=== PATIENT | male | born 1985 | race Caucasian/White ===

== ENCOUNTER 2019-11-20 03:01 | Emergency (ER) | payer SELFPAY ==
[2019-11-20 03:05] VITALS: BP 161/101; PULSE 136; RESP 25; TEMP 36.7; O2SAT 99; BMI 26.0
--- NOTE | 2019-11-20 03:12 | RAD_ITS ---
STUDY: X-RAY CHEST REASON FOR EXAM: Male, 34 years old. OVERDOSE -- C/O SOB -- SMOKES 2-3 PACKS OF CIGARETTES A DAY TECHNIQUE: Single AP portable view of the chest. COMPARISON: None. FINDINGS: The lungs are clear and expanded. There is no demonstrated pleural abnormality. Normal size heart. Normal mediastinum and sterling. Normal visualized pulmonary arteries. Normal visualized aortic arch and descending thoracic aorta. Normal visualized thoracic spine. Normal visualized ribs, clavicles, and shoulders. There is no demonstrated abnormality of the visualized soft tissue structures of the upper abdomen. RAD/Chest 1 View (Portable) IMPRESSION: Normal x-ray examination of the chest. Electronically Signed: Dasha Grey MD at 3:58 EDT , Service support ,
--- NOTE | 2019-11-20 03:13 | EKG12_ITS ---
Test Reason : DYSRHYTHMIA Blood Pressure : / mmHG Vent. Rate : 124 BPM Atrial Rate : 124 BPM P-R Int : 146 ms QRS Dur : 088 ms QT Int : 320 ms P-R-T Axes : 076 054 036 degrees QTc Int : 459 ms Sinus tachycardia Otherwise normal ECG Confirmed by EROS LANG, LAMONT ([id number]), visual effects editor ALONDRA VALLE ([id number]) on 11/22/2019 1:50:40 PM Referred By: SUBHASH Confirmed By:FELIBEROT COONEY MD
--- NOTE | 2019-11-20 03:14 | ED.VIS.GEN ---
History of Present Illness Chief Complaint: Overdose Informant: Patient, [employer] Onset: Today Narrative: Patient brought by EMS from his friend's house due to unresponsive event, they had suspected overdose. He states he was hanging out only thing he did was smoke weed, lasting he remembers. He denies alcohol use or opiate drug use. He was given a total of 6 Narcan did not responded to get the EMS. Reported he had a lot of emesis, denies any current nausea. Denies any recent illness. No urinary symptoms. Denies chest pains or shortness of breath. Denies any previous similar symptoms in the past. Denies allergies or any past medical history is. Prior similar symptoms: No Past Medical History - Allergies and Home Meds Allergies/Adverse Reactions: Allergies CATS Allergy (Uncoded 11/20/19 03:10) Swelling Primary Care Physician: Polo Burgess [Primary Care Provider] - Past Medical History: None Smoking Status: Current every day smoker Review of Systems General: Denies: Chills, Fever, Sweats Eyes: Denies: Visual changes - bilaterally, Diplopia ENT: Denies: Rhinorrhea, Sore throat Cardiovascular: Denies: Chest pain, Palpitations Respiratory: Denies: Dyspnea, Cough, Dyspnea on exertion Gastrointestinal: Denies: Abdominal pain, Nausea, Vomiting, Diarrhea, Melena, Hematochezia Genitourinary: Denies: Dysuria, Hematuria, Frequency Musculoskeletal: Denies: Back pain, Extremity Pain Skin: Denies: Rash, Wounds Neurological: Denies: Headache, Weakness, Numbness Physical Exam Vital Signs/Narrative: Vital Signs Temp Pulse Resp BP Pulse Ox 11/20/19 03:05 98.0 F 136 H 25 H 161/101 H 99 General: Well nourished, Well developed, No Acute Distress Head: Normocephalic, Atraumatic Eyes: Perrl, EOMI ENT: Moist mucous membranes, No rhinorrhea Neck: Supple, Nontender Cardiovascular: Regular rate, Regular rhythm, No murmurs, Tachycardia Respiratory: No distress, CTA bilaterally, Chest nontender Abdomen: Soft, Nontender, Nondistended, Normal bowel sounds Back: Nontender, Normal Inspection Extremities: Nontender, No edema, - - Left proximal tibial IO Skin: Normal color, No rash Neurological: Alert, Oriented x3, Cranial nerves II-XII grossly intact, Normal Strength, Normal Sensation Psychological: Normal affect, Normal Mood Diagnostic/Tx/Re-eval Chest X-Ray - ED: 2 View, Read by ED Physician, Read by Radiologist, No Acute Disease - EKG Initial EKG Interpretation: Sinus Rhythm - Sinus rate of 124, no ST or T wave changes, QTC 459. - Medical Decision Making Patient awake alert x3, states he only smoked marijuana, denies any other substances. EKG was sinus rhythm chest x-ray negative. Discussed with patient unclear why he went unresponsive reports he got CPR by police. Is adamant there is no other drugs. Initially agreed with work-up with labs, however prior to obtaining labs, he states he just wants to go. He is alert and oriented x3, is clinically stable, capable of making decisions. Patient signed out AGAINST MEDICAL ADVICE. Signs and symptoms discussed return. All questions were answered. IO was removed. ED Disposition - Plan for ED Patient: Disposition: Home or Assisted Living Diagnosis: Unresponsive episode, Tetrahydrocannabinol (THC) use disorder, mild, abuse Referrals: Polo Burgess [Primary Care Provider] - 1 Day for another exam Additional Instructions: You did not want us to do any further testing for the event that occurred. You are signing out AGAINST MEDICAL ADVICE.
[2019-11-20 04:29] VITALS: BP 138/78; PULSE 76; RESP 16; O2SAT 98
== END 2019-11-20 04:29 | disposition left against medical advice (07) ==
PROVIDERS: Emergency Provider Emergency Medicine
DX: R40.4 Transient alteration of awareness (principal); F12.10 Cannabis abuse, uncomplicated; F17.200 Nicotine dependence, unspecified, uncomplicated; Z53.29 Procedure and treatment not carried out because of patient's decision for other reasons
CPT/HCPCS: 71045; 93005; 99285

== ENCOUNTER 2022-09-14 02:18 | Inpatient (IN) | payer MEDICAID, SELFPAY ==
[2022-09-14] VITALS (7 sets, daily range): BP systolic 106–158; BP diastolic 55–74; PULSE 63–95; RESP 14–16; TEMP 36.3–37.1; O2SAT 96–100; BMI 27.2; BMI 25.4
--- NOTE | 2022-09-14 03:10 | EDS_ITS ---
HPI History of Present Illness Chief Complaint: Substance Abuse Detail of Chief Complaint: Presents for detox for opiates Informant: patient Onset/Context/Timing Onset: Month(s) Context: Gradual Onset Timing: Continuous Quality: Patient snorts daily Location: Nasal Current Severity: Moderate Worsened by: Nothing Relieved by: Nothing Associated Symptoms Associated Symptoms: Presently noticed him Narrative Narrative: Patient is a 37-year-old male who has been using fentanyl for some time. He uses daily. He used amphetamine type medicine 1 week ago. He denies alcohol use. He has never been in a detox program. 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 He states he needs to be clean to start [employer]. He was recently tested for HIV and hepatitis and states his test were negative. These were performed at [facility]. He denies headache, visual, ocular auditory symptoms. He denies cardiac respiratory symptoms. He denies history of SBE or being immune suppressed. He denies GI symptoms. He does not use IV drugs. Prior similar symptoms: Yes Recent Illness/Hospitalization: Yes PFSH PFS Home Medications NK 11/20/19 [History Last Taken Unknown] Allergy/AdvReac Type Severity Reaction Status Date / Time cat dander [cats] Allergy Swelling Verified 09/14/22 02:22 Surgical History (Updated 09/14/22 @ 02:24 by Ana Phillips) Hx of appendectomy Social History Smoking Status: Current every day smoker tobacco type: cigarettes ROS ROS ED Constitutional Constitutional ED: Denies chills, fever(s), subjective, sweats or weight loss Eyes Eyes: Denies blurry vision, change in vision or diplopia ENT ENT ED: Denies ear pain, rhinorrhea or sore throat Cardiovascular Cardiovascular: Denies chest pain, orthopnea, palpitations or racing heartbeat Respiratory/Chest Respiratory/Chest: Denies cough, dyspnea, dyspnea on exertion or orthopnea Gastrointestinal Gastrointestinal: Denies abdominal pain, diarrhea, melena, nausea or vomiting Genitourinary Genitourinary ED: Denies dysuria, hematuria or urinary frequency Musculoskeletal Musculoskeletal: Denies arthralgias, back pain or myalgias Integumentary Denies abscess, Abrasions or rash Neurologic Neurologic: Denies headache(s) or paresthesias Hematologic/Lymphatic Hematologic/Lymphatic: Denies easy bleeding or easy bruising EXAM Physical Exam Const Vital Signs: 09/14/22 02:21 Temperature 98.2 F Temperature Source Oral Pulse Rate 95 Respiratory Rate 16 Blood Pressure 158/74 H Blood Pressure Mean 102 Pulse Ox 98 Oxygen Delivery Method Room Air Positive well nourished and well developed General Appearance ED: well developed and NAD; Negative for cyanotic, diaphoretic or pallor HEENT Reports moist mucous membranes HEENT Narrative: Head is atraumatic normocephalic. Ears normal. Nares patent. Mucosa moist. Teeth normal. Eyes PERRL and EOMs intact bilaterally General Eye ED: Negative for pale conjunctiva or scleral icterus Neck no lymphadenopathy, supple and no JVD Chest Wall inspection of chest normal and palpation of chest normal Resp normal respiratory effort and clear to auscultation bilaterally Cardio regular rate, regular rhythm, S1 normal heart sound, S2 normal heart sound and no murmurs GI normal to inspection, nondistended, normoactive bowel sounds, non-tender, non- distended and no masses; Negative for hepatosplenomegaly Back/Spine no CVA tenderness Cervical Spine: Negative for cervical spine tenderness Thoracic Spine / Upper Back: Negative for thoracic spinal tenderness Lumbar Spine / Lower Back: Negative for lumbar spinal tenderness Extremity normal to inspection General Extremety ED: Negative for edema General Extremity: Negative for edema Neuro oriented x3, CN's II-XII intact bilaterally and no sensory deficits noted Sensorium / Orientation: alert Psych mental status grossly normal Skin no rashes or lesions noted, no wounds and skin turgor normal General Skin Exam: Negative for jaundice or pallor MDM MDM MDM Narrative Medical decision making narrative: Patient has addiction to opiates and occasional use of amphetamines. Patient presents for detox. Patient has no symptoms of withdrawal presently. Patient states he uses 20 to 25/day. He states he snorts. There is no evidence of any septal deviation or defect. We will obtain appropriate blood work for admission to addiction medicine. Lab Data Attestation: I reviewed the patient's lab results. Lab results narrative: BC is unremarkable. Comprehensive metabolic panel is unremarkable. Tox screen is positive for amphetamines, cannabis. Opiates were negative which 1 would expect since fentanyl does not show up on tox screen. Labs: Laboratory Results - last 24 hr 09/14/22 09/14/22 09/14/22 03:25 03:25 03:25 WBC 7.6 RBC 4.44 L Hgb 13.8 Hct 41.1 MCV 92.6 MCH 31.1 MCHC 33.6 RDW Std Deviation 47.8 H RDW Coeff of Percy 14.0 Plt Count 212 MPV 8.6 Immature Gran % (Auto) 0.300 Neut % (Auto) 46.7 L Lymph % (Auto) 38.4 [place] % (Auto) 9.4 Eos % (Auto) 4.5 Baso % (Auto) 0.7 Absolute Neuts (auto) 3.6 Absolute Lymphs (auto) 2.93 Nucleated RBC % 0 Sodium 141 Potassium 3.6 Chloride 104 Carbon Dioxide 31.0 Anion Gap 6 BUN 16 Creatinine 1.06 Estim Creat Clear Calc 98.52 Est GFR (MDRD) Af Amer 101 Est GFR (MDRD) Non-Af 83 BUN/Creatinine Ratio 15.1 Glucose 111 H Calcium 8.8 Total Bilirubin 0.20 AST 7 L ALT 19 Alkaline Phosphatase 63 Total Protein 6.9 Albumin 3.7 Globulin 3.2 Albumin/Globulin Ratio 1.2 Urine Opiates Screen Urine Methadone Screen Ur Barbiturates Screen Ur Phencyclidine Scrn Ur Amphetamines Screen MDMA (Ecstasy) Screen U Benzodiazepines Scrn Urine Cocaine Screen U Cannabinoids Screen Ur Drug Screen Comment Ethyl Alcohol < 3.0 09/14/22 03:40 WBC RBC Hgb Hct MCV MCH MCHC RDW Std Deviation RDW Coeff of Percy Plt Count MPV Immature Gran % (Auto) Neut % (Auto) Lymph % (Auto) [place] % (Auto) Eos % (Auto) Baso % (Auto) Absolute Neuts (auto) Absolute Lymphs (auto) Nucleated RBC % Sodium Potassium Chloride Carbon Dioxide Anion Gap BUN Creatinine Estim Creat Clear Calc Est GFR (MDRD) Af Amer Est GFR (MDRD) Non-Af BUN/Creatinine Ratio Glucose Calcium Total Bilirubin AST ALT Alkaline Phosphatase Total Protein Albumin Globulin Albumin/Globulin Ratio Urine Opiates Screen NEGATIVE Urine Methadone Screen NEGATIVE Ur Barbiturates Screen NEGATIVE Ur Phencyclidine Scrn NEGATIVE Ur Amphetamines Screen POSITIVE H MDMA (Ecstasy) Screen NEGATIVE U Benzodiazepines Scrn NEGATIVE Urine Cocaine Screen NEGATIVE U Cannabinoids Screen POSITIVE H Ur Drug Screen Comment Ethyl Alcohol Discharge Plan Triage Chief Complaint: Substance Abuse ED Provider: Cheko Payne Dx/Rx/DC Orders Clinical Impression: Opiate addiction, Amphetamine use, Cannabis use disorder, mild, abuse, High blood pressure Prescriptions: No Action NK Primary Care Provider: Care Physician,No Primary Referrals: Care Physician,No Primary [Primary Care Provider] - Disposition Disposition: Acute Care Hospital [facility]
[2022-09-14 03:30] LABS: Absolute Lymphocyte Count 2.93 X10^3/uL (0.83-4.51); Absolute Neutrophil Count 3.6 X10^3/uL (2.0-7.7); Basophil# 0.05 X10^3/uL; Basophil% 0.7 % (0-1); Eosinophil# 0.34 X10^3/uL; Eosinophils% 4.5 % (0-5); Hematocrit 41.1 % (40-54); Hemoglobin 13.8 g/dL (13.0-16.5); Lymphocyte # 2.93 X10^3/ul (0.83-4.51); Lymphocyte % 38.4 % (19-41); Mean Corp Hgb Conc 33.6 g/dL (32-36); Mean Corpuscular Hgb 31.1 pg (27.0-32.0); Mean Corpuscular Volume 92.6 fL (80-94); Mean Platelet Vol. 8.6 fl (6.2-12.0); Monocyte# 0.72 X10^3/uL; Monocyte% 9.4 % (0-10); NRBC Flagged by Analyzer 0 % (0-5); Neutrophil # 3.57 X10^3/uL (2.7-7.7); Neutrophil % 46.7 % (47-70); Platelet Count 212 K/mm3 (150-450); RBC Distribution Width SD 47.8 fl (35.1-43.9); Red Blood Count 4.44 M/mm3 (4.6-6.2); White Blood Count 7.6 K/mm3 (4.4-11.0)
[2022-09-14 03:45] LABS: Alcohol, Blood (Medical)-Serum < 3.0 mg/dL
[2022-09-14 03:47] LABS: ALB/GLOB Ratio 1.2 RATIO (0.9-2.4); AST(SGOT) 7 U/L (15-37); Alanine Aminotransfer ALT/SGPT 19 U/L (16-61); Albumin, Serum 3.7 g/dL (3.2-5.0); Alkaline Phosphatase 63 U/L (45-117); Anion Gap 6 (5-15); BUN 16 mg/dL (7-18); BUN/Creat Ratio 15.1 RATIO (10-20); Calcium,Total 8.8 mg/dL (8.5-10.1); Chloride 104 mmol/L (98-107); Creatinine, Serum 1.06 mg/dL (0.70-1.30); EST Glomerular Filtration Rate 83 mL/min (>60); Est Glom Filt Rate - Afr Amer 101 mL/min (>60); Estimated Creatinine Clearance 98.52 ml/min; Globulin 3.2 g/dL (2.2-4.2); Glucose 111 mg/dL (74-106); Potassium 3.6 mmol/L (3.5-5.1); Protein, Total 6.9 g/dL (6.4-8.2); Sodium Level 141 mmol/L (136-145)
[2022-09-14 04:11] LABS: Amphetamine Urine VISTA POSITIVE (<1000 ng/mL); Barbiturate Urine VISTA NEGATIVE (< 200 ng/mL); Benzodiazepine Urine VISTA NEGATIVE (< 200 ng/mL); Cocaine Urine VISTA NEGATIVE (< 300 ng/mL); Ecstacy Urine VISTA NEGATIVE (< 500 ng/mL); Methadone Urine VISTA NEGATIVE (< 300 ng/mL); PCP Urine VISTA NEGATIVE (< 25 ng/mL); THC Urine VISTA POSITIVE (< 50 ng/mL); Vista UDS pH Range 6
--- NOTE | 2022-09-14 04:56 | HP.PCM.HOS_ITS ---
HPI - General General Date of Admission: 09/14/22 Date of Service: 09/14/22 Chief Complaint: Desire for detoxification HPI Narrative GAGAN MONTGOMERY, is a 37 M with a significant history of polysubstance abuse who presents to the emergency department for help with fentanyl detoxification. Reportedly patient uses about $40-$50 of fentanyl per day. He snorts the fentanyl. Last time he used was on the same day of presentation. He has been for 3 to 5 years. He reports withdrawal symptoms of feeling cold and fatigued. He is hoping to be clean so that he can start on Vivitrol. Also rarely uses methamphetamine. Last time he used methamphetamine was about a week ago. [facility] Medical History no medical history no medical history Home Medications NK 11/20/19 [History Last Taken Unknown] Allergy/AdvReac Type Severity Reaction Status Date / Time cat dander [cats] Allergy Swelling Verified 09/14/22 02:22 Family History other other (Denies knowledge of maternal and paternal medical history.) Surgical History (Updated 09/14/22 @ 02:24 by Ana Phillips) Hx of appendectomy Social History Smoking Status: Current every day smoker tobacco type: cigarettes ROS ROS Narrative Pertinent positives and pertinent negatives as noted in HPI. All other systems were reviewed and are negative Vital Signs Vital Signs Vital Signs: 09/14/22 02:21 Temperature 98.2 F Temperature Source Oral Pulse Rate 95 Respiratory Rate 16 Blood Pressure 158/74 H Blood Pressure Mean 102 Pulse Ox 98 Oxygen Delivery Method Room Air Weight Weight: 86.2 kg Body Mass Index (BMI) 27.2 Physical Exam Narrative Physical exam: General: Well-nourished, well-developed. Head: Normocephalic, atraumatic, no tenderness Eyes: Vision is grossly intact. EOMI ENT, no trauma, moist mucous membranes, no rhinorrhea Neck: Nontender, No thyromegaly. CVS: Regular rate and rhythm. S1-S2 present. No murmur, gallop or rub. Respiratory : clear to auscultation bilaterally, chest wall nontender, no wheezing Abdomen: Soft, nontender, nondistended, normal bowel sounds, no masses : Deferred Back: Nontender, no CVA tenderness, no midline spinal tenderness, deformities, step-offs Extremities: Nontender full range of motion, no trauma Skin: Normal color, no trauma, abrasions Neuro: Alert, oriented, cranial nerves II through XII grossly intact. Psychiatry: Normal mood. Normal affect. Not depressed. Not anxious. Results Lab / Micro Data Result Diagrams: 09/14/22 03:25 09/14/22 03:25 Labs: Laboratory Results - last 24 hr 09/14/22 03:25: WBC 7.6, RBC 4.44 L, Hgb 13.8, Hct 41.1, MCV 92.6, MCH 31.1, MCHC 33.6, RDW Std Deviation 47.8 H, RDW Coeff of Percy 14.0, Plt Count 212, MPV 8.6, Immature Gran % (Auto) 0.300, Neut % (Auto) 46.7 L, Lymph % (Auto) 38.4, [place] % (Auto) 9.4, Eos % (Auto) 4.5, Baso % (Auto) 0.7, Absolute Neuts (auto) 3.6, Absolute Lymphs (auto) 2.93, Nucleated RBC % 0 09/14/22 03:25: Sodium 141, Potassium 3.6, Chloride 104, Carbon Dioxide 31.0, Anion Gap 6, BUN 16, Creatinine 1.06, Estim Creat Clear Calc 98.52, Est GFR (MDRD) Af Amer 101, Est GFR (MDRD) Non-Af 83, BUN/Creatinine Ratio 15.1, Glucose 111 H, Calcium 8.8, Total Bilirubin 0.20, AST 7 L, ALT 19, Alkaline Phosphatase 63, Total Protein 6.9, Albumin 3.7, Globulin 3.2, Albumin/Globulin Ratio 1.2 09/14/22 03:25: Ethyl Alcohol < 3.0 09/14/22 03:40: Urine Opiates Screen NEGATIVE, Urine Methadone Screen NEGATIVE, Ur Barbiturates Screen NEGATIVE, Ur Phencyclidine Scrn NEGATIVE, Ur Amphetamines Screen POSITIVE H, MDMA (Ecstasy) Screen NEGATIVE, U Benzodiazepines Scrn NEGATIVE, Urine Cocaine Screen NEGATIVE, U Cannabinoids Screen POSITIVE H, Ur Drug Screen Comment Assessment & Plan Assessment/Plan (1) Opiate addiction: (2) Amphetamine use: (3) Desire for detoxification: (4) Tobacco abuse: (5) Elevated blood pressure reading without diagnosis of hypertension: PLAN: Plan Opioid dependence and withdrawal Patient be started on Subutex and other adjunctive medications: Gabapentin as needed; dicyclomine as needed; Vistaril as needed; methocarbamol as needed; clonidine as needed; Imodium as needed; trazodone as needed and Zofran as needed. Monitor COWS and CINA score Methamphetamine use Counseled Tobacco abuse Counseled Nicotine patch declined. Elevated blood pressure the diagnosis of hypertension Trend blood pressures. DVT prophylaxis Low risk Encourage to ambulate Charges/Coding Visit Charges Inpatient E&M: 37240 Init Hosp L2
[2022-09-14] MEDS: Methocarbamol 750 MG Tablet 1500 MG PO (06:27)
--- NOTE | 2022-09-14 15:13 | CASEMGMT ---
Social work SW notified [facility]AMP pt navigator pt is here. TRI Cruz
[2022-09-15 03:52] VITALS: BP 111/42; PULSE 61; RESP 16; TEMP 36.8; O2SAT 97
[2022-09-15 07:30] VITALS: BP 117/67; PULSE 83; RESP 13; TEMP 36.6; O2SAT 98
--- NOTE | 2022-09-15 11:05 | PN.HOSP_ITS ---
Subjective Subjective Follow-up on acute opioid withdrawal: Patient was seen and examined. Denied any new complaints. No acute events o vernight. Objective Data Objective Data Vital Signs: Vital Signs Temp Pulse Resp BP Pulse Ox O2 Del Method 97.9 F 83 13 117/67 98 Room Air 09/15/22 07:30 09/15/22 07:30 09/15/22 07:30 09/15/22 07:30 09/15/22 07:30 09/15/22 07:30 Oxygen Delivery Method Room Air Weight: 80.331 kg Body Mass Index (BMI) 25.4 Intake & Output: Intake and Output for Last 24 Hours 09/13/22 09/14/22 09/15/22 23:59 23:59 23:59 Intake Total 100 / 400 460 / 460 Balance 100 / 400 460 / 460 Lab / Micro Data Result Diagrams: 09/14/22 03:25 09/14/22 03:25 Physical Exam Narrative Physical exam: General: Alert, Oriented x3, Cooperative HEENT: Atraumatic Oral: Moist Mucosa Neck: Supple Lungs: Clear to auscultation Cardiovascular: HS I+II, regular, no murmurs Abdomen: Bowel Sounds Present, Soft, Non Tender Extremities: No edema Skin: No rashes, No breakdown Neurological: Grossly intact Psych/Mental Status: Appropriate Assessment & Plan Assessment/Plan (1) Desire for detoxification: PLAN: Plan 1. Acute opioid withdrawal, last Cina score is 0 Continue on Subutex withdrawal protocol 2. Nicotine dependence, advised to quit, patient declined patch 3. Polysubstance use, advised to quit 4. DVT prophylaxis?low risk, early ambulation recommended Charges/Coding Visit Charges Inpatient E&M: 10794 [facility] Hosp L1
--- NOTE | 2022-09-15 11:24 | ADDICTION ---
TW met with pt to complete ASAM, AUDIT, DUDIT, MSE, and sign an SHAHID for probation. Pt continued to present barriers on why he could not do a bed to bed transfer to inpatient rehab. TW attempted to problem solve with pt and find solutions, and utilized motivational interviewing. Pt was still unwilling to commit to going to inpatient rehab directly from detox. Pt wanted TW to contact PO to let her know he was in detox, SHAHID was signed. Pt is requesting information on when he will be d/c. TW encouraged pt to wait until tomorrow morning to speak with Justyna before leaving.
[2022-09-15 14:42] VITALS: BP 115/69; PULSE 82; RESP 12; TEMP 36.8; O2SAT 97
[2022-09-15 21:37] VITALS: BP 104/55; PULSE 78; RESP 18; TEMP 36.4; O2SAT 98
[2022-09-15] MEDS: traZODone 100 MG Tablet PO (21:41)
[2022-09-16 04:30] VITALS: BP 116/58; PULSE 66; RESP 18; TEMP 36.6; O2SAT 99
[2022-09-16 09:27] VITALS: BP 97/54; PULSE 77; RESP 16; TEMP 37.3; O2SAT 98
[2022-09-16] MEDS: Dicyclomine 10 MG Capsule 20 MG PO (09:38)
[2022-09-16] MEDS: Gabapentin 300 MG Capsule PO (09:38)
--- NOTE | 2022-09-16 14:11 | DCINST_ITS ---
Discharge Instructions Diet Discharge Diet: No restrictions Activity Discharge Activity: Return to Normal Activity Follow Up Care Test Results: Test results from this visit will be discussed in further detail at your follow- up appointment, if applicable. Discharge Plan Admission Admit Date/Time: 09/14/22 04:53 Primary Reason for Your Visit: Detox Attending Provider: Yashira Echavarria Primary Care Provider: Care Physician,No Primary Consulting Providers: Bertin Anthony ; Radha Larios Instructions Patient Instructions: ED Opiate Abuse, ED Opioid Withdrawal Discharge Orders/Prescriptions Prescriptions: No Action NK Referrals / Follow Up: Care Physician,No Primary [Primary Care Provider] - Disposition Disposition (needs filled in before D/C Order can be placed): Home, Self Care
[2022-09-16 14:13] VITALS: BP 122/70; PULSE 66; RESP 16; TEMP 36.7; O2SAT 100
--- NOTE | 2022-09-16 14:14 | DS.PCM_ITS ---
Providers Date of Admission: 09/14/22 Date of Discharge: 09/16/22 Primary Care Physician: No Primary Care Phys Reason For Visit: DESIRE FOR DETOXIFICATION Diagnosis Discharge Diagnosis (1) Desire for detoxification: Status: Acute Plan #Acute opioid withdrawal #Polysubstance use #Nicotine dependence Medications at Discharge Home Medications NK 11/20/19 Hospital Course Summary of Care Provided Minutes Spent on Discharge: 20 Hospital Course: 37-year-old male with history of fentanyl use, amphetamine use, nicotine use presented to [facility] 09/14/2022 requesting fentanyl detoxification. He is about $40-$50 of fentanyl a day and snorts the fentanyl. Last use was on the same day of presentation and he has been using for 3 to 5 years. He was admitted and did not require any Subutex. On day of discharge she reported feeling well, no abdominal pain had some diarrhea but no other symptoms. 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 Denied other complaints Physical Exam Const alert and no apparent distress Constitutional Narrative: Oriented HEENT normocephalic and head/scalp atraumatic Eyes Eyes Narrative: EOM grossly intact, anicteric Neck supple Resp normal respiratory effort and clear to auscultation bilaterally Cardio regular rate and regular rhythm GI soft to palpation, non-tender and non-distended Extremity Extremity Narrative: No edema appreciated Neuro moves all extremities Neuro Narrative: No overt focal deficits appreciated Psych Psych Narrative: Cooperative Weight / BMI Weight Weight: 80.331 kg Body Mass Index (BMI) 25.4 ABG / Lab / Microbiology Data Result Diagrams: 09/14/22 03:25 09/14/22 03:25 D/C Instructions Discharge Diet: No restrictions Meaningful Use Info Meaningful Use Diagnoses (Choose all that apply): None applicable Discharge Plan Admission Admit Date/Time: 09/14/22 04:53 Primary Reason for Your Visit: Detox Attending Provider: Yashira Echavarria Primary Care Provider: Care Physician,No Primary Consulting Providers: Bertin Anthony ; Radah Larios Instructions Patient Instructions: ED Opiate Abuse, ED Opioid Withdrawal Discharge Orders/Prescriptions Prescriptions: No Action NK Referrals / Follow Up: Care Physician,No Primary [Primary Care Provider] - Disposition Disposition (needs filled in before D/C Order can be placed): Home, Self Care Charges/Coding Visit Charges Inpatient E&M: 87375 Disch Hosp
== END 2022-09-16 14:16 | disposition home or self-care (01) | DRG 773 ==
LOC: ED 04:41 → MS3 05:13
PROVIDERS: Admitting Provider Hospitalist; Emergency Provider Emergency Medicine; Visit Provider Internal Medicine
DX: F11.23 Opioid dependence with withdrawal (principal); F15.99 Other stimulant use, unspecified with unspecified stimulant-induced disorder; F12.10 Cannabis abuse, uncomplicated; F17.210 Nicotine dependence, cigarettes, uncomplicated; R03.0 Elevated blood-pressure reading, without diagnosis of hypertension
CPT/HCPCS: 80053; 80307; 82077; 85025; 99283; 99406